=== PATIENT | female | born 1940 | race Caucasian/White ===

== ENCOUNTER → 2016-10-25 | Outpatient (CLI) | payer OTHER ==
[~2016-10-25] VITALS: Ht 160 cm; Wt 44.9 kg
[~2016-10-25] MED LIST: CENTRUM SILVER1 EAC4 PO; CITRACAL + D M1 EACH PO; FISH OIL 1,001000 M2 PO; NEXIUM40 MG PO; OSTEO BI-FLEX1 EAC1 PO; PREDNISONE 5 MG5 M1 PO; PREMARIN 0.3MG0.3 MG PO
--- NOTE | ~2016-10-25 | S ---
[facility] [address] [place] [address] SURGICAL PATH RPT PROCEDURE Name: KHLOE PARISI Room #: REG JASWINDER Uribe#: [id number] Admission: 10/25/16 Date of : 44 Discharge: Report #: [id number] Path Case #: [id number] PATHOLOGY REPORT DRAFT COLLECTION DATE: 10/25/2016 RECEIVED DATE: 10/26/2016 SPECIMEN(S) RECEIVED: A.Cecal polyp B.Proximal transverse polyp
--- NOTE | ~2016-10-25 | P ---
[facility] [place] [address] PROCEDURE REPORT Name: KHLOE PARISI Room #: REG [facility]#: [id number] Admission: 10/25/16 Attend Phys: Jamie Veronica MD Discharge: Date of : 44 Report #: [id number] THIS REPORT FOR: //name// CC: Porsche Veronica DATE OF SERVICE: 10/25/2016 BRIEF HISTORY: The patient is a 75-year-old woman with family history of colon cancer, mother. Last colonoscopy was more than 5 years ago. She presents for high risk screening colonoscopy due to family history of colon cancer. POSTOPERATIVE DIAGNOSES: Colon polyps x 2. MEDICATIONS: Deep sedation with propofol per anesthesia. SPECIMEN: 1. Cecal polyp. 2. Polyp, proximal transverse colon. ESTIMATED BLOOD LOSS: 3 mL. PROCEDURE: Colonoscopy to cecum and terminal ileum with snare polypectomy and biopsy. FINDINGS: Prior to propofol sedation, procedure of colonoscopy discussed with the patient as well as potential risks and its complications. She indicates she understands and desires to proceed. DESCRIPTION OF PROCEDURE: With the patient in left lateral decubitus position, digital examination was completed which revealed no abnormalities. Subsequently, the [employer] video colonoscope was introduced into the rectum and advanced under direct vision to the cecum. Done with some difficulty as she had a tortuous redundant colon. The cecum was reached, identified by the ileocecal valve and appendiceal orifice. I was able to visualize the distal segment of terminal ileum, which was inspected and noted to be unremarkable. At that point, the scope was slowly withdrawn and careful circumferential views were obtained. On slow withdrawal of the scope, the prep was noted to be excellent. The mucosa was within normal limits, normal vascular pattern, normal light reflex. In the cecum, a diminutive polyp was seen and removed by biopsy. Scope was further withdrawn and in the proximal transverse colon, a flat 5-6 mm polyp was seen and removed by cold snare polypectomy and recovered. Scope was further withdrawn and no additional neoplastic lesions were seen. The remainder of the exam was normal and no mucosal abnormalities were seen. Scope was withdrawn in the rectum. Upon retroflexion, no abnormalities were seen. Scope was [facility] [address] [place] [address] PROCEDURE REPORT Name: KHLOE PARISI Room #: REG [facility].#: [id number] Admission: 10/25/16 Attend Phys: Jamie Veronica MD Discharge: Date of : 44 Report #: [id number]. The patient tolerated the procedure well. CONDITION OF THE PATIENT UPON DISCHARGE: Following procedure, the patient drowsy, arousable, conversant and will be discharged home when fully ambulatory. INSTRUCTIONS TO THE PATIENT AND FAMILY AT THE TIME OF DISCHARGE: We will follow up on the path report. If one or both polyps are adenomatous, she should return in 5 years; if neither is adenomatous, then 10 years would be indicated. It is noted that her mother is the only family member who had colon cancer and was age 68. Last colonoscopy was more than 5 years ago. Withdrawal time from the cecum was 19 minutes. <ELECTRONICALLY SIGNED> By: Jamie Veronica MD 10/27/16 1228 [id number] Jamie Veronica MD /nt
[2016-10-25 14:03] LABS: GLUCOSE POCT 108 mg/dl (70-99)
== END | disposition home or self-care (01) ==
LOC: GI 08:06
PROVIDERS: Specialist
DX: Z12.11 Encounter for screening for malignant neoplasm of colon (principal); K63.5 Polyp of colon; K21.9 Gastro-esophageal reflux disease without esophagitis; E11.9 Type 2 diabetes mellitus without complications; Z90.710 Acquired absence of both cervix and uterus; Z98.890 Other specified postprocedural states
CPT/HCPCS: 62110; 62900

== ENCOUNTER → 2019-04-24 | Outpatient (CLI) | payer OTHER | LOC: RAD 04-15 10:59 | DX: Z12.31 Encounter for screening mammogram for malignant neoplasm of breast (principal) ==

== ENCOUNTER → 2021-05-09 | Outpatient (CLI) | payer OTHER | LOC: BC 13:57 | PROVIDERS: ATTEND Internal Medicine | DX: Z12.31 Encounter for screening mammogram for malignant neoplasm of breast (principal); N64.89 Other specified disorders of breast ==